=== PATIENT | female | born 2000 | race Caucasian/White ===

== ENCOUNTER 2023-08-04 13:10 | Inpatient (IN) | payer BC, SELFPAY ==
[2023-08-04] VITALS (22 sets, daily range): BP systolic 91–171; BP diastolic 45–100; PULSE 62–147; RESP 18–50; TEMP 34–38.5; O2SAT 92–99; BMI 45.0
--- NOTE | ~2023-08-04 | XR_ITS ---
EXAMINATION: XR CHEST CLINICAL INFORMATION: Intubation COMPARISON: None available. TECHNIQUE: Frontal view of the chest was obtained. FINDINGS: The lungs are hypoexpanded but clear. The heart size and pulmonary vascularity is normal. Tip of endotracheal tube is 3.0 cm above the hayley. Enteric tube tip is below the diaphragm. No gross bony abnormality seen. XR/XR chest 1V IMPRESSION: 1. Hypoexpanded lungs without acute process. 2. Support lines and catheters are in satisfactory position.
--- NOTE | ~2023-08-04 | CT_ITS ---
CT HEAD WITHOUT IV CONTRAST INDICATION: Mental status change. COMPARISON: None available. TECHNIQUE: Multidetector CT acquisitions of the head was obtained without IV contrast. This CT examination was performed using dose optimization techniques as appropriate, variously including the following: *Automated exposure control *Adjustment of mA and/or kV according to patient size (this includes techniques or standardized protocols for targeted exams where dose is matched to indication/reason for exam; i.e. extremities or head) *Use of iterative reconstruction technique FINDINGS: There is no intracranial hemorrhage, hydrocephalus, extra-axial surface collection, midline shift, or other herniation pattern. Rowe to white matter differentiation is diffusely maintained without evidence of an evolved acute territorial infarct. The basilar cisterns are preserved. No significant soft tissue abnormality. No acute osseous abnormality. The paranasal sinuses and the mastoid air cells are well aerated. CT/CT head/brain wo IV con IMPRESSION: No acute intracranial abnormality.
[2023-08-04 13:43] LABS: Basophils Percent Auto 0.2 % (0-2); Hematocrit 41.1 % (37.0-47.0); Hemoglobin 13.6 g/dl (12.0-16.0); Imm Gran Abs Auto 0.09 X10*3/uL (0.00-0.03); Imm Gran Pct Auto 0.5 % (0.0-0.4); Lymphocytes Absolute Auto 0.5 X10*3/uL (1.2-4.9); Lymphocytes Percent Auto 2.5 % (20-40); MANUAL DIFF FLAG SCAN; Mean Corpuscular HGB Conc 33.1 g/dl (31.0-35.0); Mean Corpuscular Hemoglobin 27.8 pg (27.0-33.0); Mean Corpuscular Volume 83.9 fL (80.0-98.0); Mean Platelet Volume 9.8 fL (9.4-12.3); Monocytes Absolute Auto 0.4 X10*3/uL (0.1-1.2); Monocytes Percent Auto 1.8 % (2-11); Neutrophils Absolute Auto 18.3 x10*3/uL (2.0-8.3); Platelet Count 372 X10*3/uL (160-400); Red Cell Distribution Width 13.1 % (11.0-16.0); SCAN SMEAR FLAG 1; White Blood Count 19.3 X10*3/uL (4.8-10.8)
[2023-08-04] MEDS: LORazepam 2 MG/ML VIAL 1 MG IVPUSH (13:52)
--- NOTE | 2023-08-04 13:53 | ED_ITS ---
HPI - Seizure General Chief Complaint: Seizure Stated Complaint: ? SZ,?POST ICTAL PER EMS Time Seen by Provider: 08/04/23 13:50 Source: family (MOTHER) and EMS Mode of arrival: EMS Limitations: other (POSTICTAL) History of Present Illness HPI Narrative: THIS IS A 23 YEARS OLD FEMALE BROUGHT IN FROM [place] FOR A WITNESSED SEIZURE BY THE BOYFRIEND. SHE ARRIVED POSTICTAL. MOTHER STATES ABOUT A MONTH AGO SHE HAD A SIMILAR EPISODE ABOUT THE ED NO SICK MEDICAL ATTENTION. NO REPORTED FEVER NO REPORTED VOMITING SHE WAS WELL UNTIL THIS SEIZURE. MD complaint: seizure Onset (ago): hour(s) (1) Witnessed: Yes - by Bystander Trauma: No Seizure History: No Place: Home Possible Precipitating Event: none Associated symptoms: denies other symptoms Related Data Allergies Allergy/AdvReac Type Severity Reaction Status Date / Time No Known Allergies Allergy Verified 08/04/23 13:51 Review of Systems 2 Review of Systems: Yes Unobtainable due to mental condition [facility] Past Medical History Attestation statement: The following information was validated with the patient. [facility] Narrative: DEPRESSION Social History Social History Advance Directives: No Physical Exam 2 Vital Signs: Vital Signs: Last Vital Signs Temp 101.3 F H 08/04/23 15:43 Pulse 102 H 08/04/23 15:43 Resp 34 H 08/04/23 15:43 BP 143/72 H 08/04/23 15:43 Pulse Ox 93 08/04/23 15:43 O2 Del Method Room Air 08/04/23 15:43 BMI result Body Mass Index 45.0 Const: General: well developed Nutritional Appearance: well nourished HEENT: Other: NO SIGN OF TRAUMA Head: Yes normal to inspection General nose exam: Normal external nose present Face and sinus: Yes normal facial exam Neck: Neck: Yes full ROM Chest: Chest palpation & inspection: normal inspection of the chest Resp: Effort & Inspection: normal respiratory effort Auscultation: clear to auscultation bilaterally Cardio: Jugular venous distension: no JVD Rate: regular rate Rhythm: r egular rhythm GI: Inspection: Yes normal to inspection Palpation (GI): Soft to palpation, not firm, nontender and no guarding Skin: General skin exam: no rashes or lesions noted and elasticity normal L esions: no lesions Rashes: no rashes Trauma: no lacerations or abrasions Neuro: Other: SHE APPEAR POSTICTAL SHE FOLLOW SIMPLE COMMANDS Course Reevaluation(s) Reevaluation #1: PT VERY AGITATED POST ICTAL SEDATED IN ORDER TO DO CT HEAD,SHE HAS ALSO FEVER RECTALLY WITH ELEVATED WBC . i ATTEMPED LP UNDER SEDATION BUT UNABLE TO OBTAIN GIVEN HER BODY WEIGHT ABOUT 115.3 KG WILL TERAT JUST IN CASE WITH ROCEPHIN AND ACYCLOVIR,WILL NEED IR GUIDED LP Reevaluation #2: PATIENT CONTINUED TO THRASH IN THE BED DESPITE MULTIPLE DOES OF IV BENZODIAZEPINE IV DROPERIDOL IV KETAMINE. DECISION TO INTUBATE TO PROTECT AIRWAY PATIENT WAS INTUBATED WITH RSI ETOMIDATE Ssux A 1ST ATTEMPT i AM OFF SHIFT NOW SIGNED OUT TO dR Romano i COVERED THE PT WITH ROCEPHIN AND ACYCLOVIR IN CASE [employer] INFECTION,i WAS UNABLE TO DO lp GIVEN BODY ABITUS SHE WILL NEED IR Time: 16:31 Medications Administered Discontinued Medications Generic Name Dose Route Start Last Admin Trade Name Freq PRN Reason Stop Dose Admin Acetaminophen 650 mg 08/04/23 14:42 08/04/23 15:00 Acetaminophen Supp 650 Mg Supp.Rect DC 08/04/23 14:43 650 mg ONCE ONE Administration Droperidol 0.625 mg 08/04/23 13:51 08/04/23 14:07 Droperidol 5 Mg/2 Ml Vial IVPUSH 08/04/23 13:52 0.625 mg ONCE ONE Administration Droperidol 5 mg 08/04/23 15:24 08/04/23 16:32 Droperidol 5 Mg/2 Ml Vial IVPUSH 08/04/23 15:25 5 mg ONCE ONE Administration Levetiracetam 1,500 mg in 100 mls @ 400 mls/hr 08/04/23 13:51 08/04/23 14:07 Keppra IV 08/04/23 14:05 400 mls/hr ONCE ONE Administration Sodium Chloride 1,000 mls @ 999 mls/hr 08/04/23 14:00 08/04/23 16:31 Ns IVCONT 08/04/23 15:00 999 mls/hr .Q1H1M CORINNA Administration Ceftriaxone Sodium 2 gm/ 50 mls @ 100 mls/hr 08/04/23 14:41 08/04/23 16:31 Sodium Chloride IV 08/04/23 15:10 100 mls/hr ONCE ONE Administration Lorazepam 1 mg 08/04/23 13:48 08/04/23 13:52 Lorazepam 2 Mg/Ml Vial IVPUSH 08/04/23 13:49 1 mg ONCE ONE Administration Medical Decision Making Medical Decision Making [facility] Narrative: PATIENT SEIZURE WITNESSED BY THE FAMILY WILL OBTAIN HEAD CT LABS AND REASSESS 16:00 PATIENT CONTINUED TO THRASH IN THE BED DESPITE MULTIPLE DOSES OF BENZODIAZEPINE/DROPERIDOL. THAT SHE IS DOING WAS MADE TO INTUBATE THE PATIENT PRESENT AIRWAY HE WAS INTUBATED WITH RSI AT THE 1ST ATTEMPT BY ME. 4:30 pm SIGNED OUT TO dR ROMANO OFF SHIFT NOW Differential Diagnosis Differential Diagnoses: The differential diagnosis associated with the presentation includes SEIZURE/PSEUDOSEIZURES Admission/Observation Consideration of admission/observation: Escalation of care including admission/observation considered Lab Data [facility] Lab Attestation statement: I reviewed the patient's lab results. 08/04/23 13:36 08/04/23 14:15 Labs: Lab Results 08/04/23 08/04/23 Range/Units 13:36 14:15 WBC 19.3 H (4.8-10.8) X10*3/uL RBC 4.90 (4.20-5.50) X10*6/uL Hgb 13.6 (12.0-16.0) g/dl Hct 41.1 (37.0-47.0) % MCV 83.9 (80.0-98.0) fL MCH 27.8 (27.0-33.0) pg MCHC 33.1 (31.0-35.0) g/dl RDW 13.1 (11.0-16.0) % Plt Count 372 (160-400) X10*3/uL MPV 9.8 (9.4-12.3) fL Immature Gran % (Auto) 0.5 H (0.0-0.4) % Neut % (Auto) 95.0 H (45-73) % Lymph % (Auto) 2.5 L (20-40) % [place] % (Auto) 1.8 L (2-11) % Eos % (Auto) 0.0 (0-4) % Baso % (Auto) 0.2 (0-2) % Lymph # (Auto) 0.5 L (1.2-4.9) X10*3/uL [place] # (Auto) 0.4 (0.1-1.2) X10*3/uL Eos # (Auto) 0.0 (0.0-0.4) X10*3/uL Baso # (Auto) 0.0 (0.0-0.2) X10*3/uL Abs Immat Gran (auto) 0.09 H (0.00-0.03) X10*3/uL Absolute Neuts (auto) 18.3 H (2.0-8.3) x10*3/uL Absolute Nucleated RBC 0.000 (0.0-0.012) X10*3/uL Nucleated RBC % (auto) 0.0 (0.0-0.2) /100WBC Smear Tech's Comments VERIFIED PT 13.8 H (11.1-13.3) SEC INR 1.1 (0.9-1.1) Sodium 138 (135-145) mmol/L Potassium 3.4 (3.3-5.1) mmol/L Chloride 106 (96-108) mmol/L Carbon Dioxide 19 L (22-29) mmol/L Anion Gap 16 (12-20) BUN 9 (9-16) mg/dL Creatinine 0.75 (0.5-1.4) mg/dL Estim Creat Clear Calc 140.3 Estimated GFR > 60 Random Glucose 131 H (60-115) mg/dL Calcium 9.5 (8.4-10.2) mg/dL Magnesium 1.8 (1.6-2.6) mg/dL Total Bilirubin 1.0 (0.0-1.0) mg/dL AST 17 (5-31) U/L ALT 11 (0-31) U/L Alkaline Phosphatase 148 H (39-117) U/L Total Protein 8.0 (6.5-8.0) g/dL Albumin 4.4 (3.5-5.0) g/dL Beta HCG, Quant < 2 mIU/mL Ethyl Alcohol < 10 mg/dL Independent Interpretation I performed an independent interpretation of an: CT Scan Interpretation: HEAD CT NEGATIVE Radiology Impression Discussion of test interpretation with radiology: I have reviewed the radiologist's reading. Independent Historian Clinical information obtained from an independent historian. History obtained from or confirmed by: Parent (SPOKE WITH MOTHER AT [facility]) Procedures Intubation Time out performed: Yes sedative: Etomidate Mg Given: 20 paralytic: Succinylcholine Mg Given: 100 Laryngoscope: fiber optic video scope ET Tube Size: 7.5 ET Tube Uncuffed: No Tube Placement Confirmation: visualized tube passing through cords Patient Tolerated Procedure: well and no complications Additional Comments: cxr TO FOLLOW Critical Care Time Critical Care Time Critical Care Time: Yes Total Critical Care Time: 90 Attestation: TAKING CARE OF PT SPEAKING TO THE FAMILY Discharge Plan Discharge Clinical Impression: Seizure Patient Disposition: Still a Patient
[2023-08-04 13:59] LABS: SLIDE REVIEW VERIFIED
[2023-08-04] MEDS: droPERidol 5 MG/2 ML VIAL 0.625 MG IVPUSH (14:07)
[2023-08-04] MEDS: levETIRAcetam in NaCl (iso-os) 1,500 MG/100 ML PIGGYBACK 400 MG IV (14:07)
[2023-08-04 14:27] LABS: INTERNATIONAL NORM RATIO 1.1 (0.9-1.1); Prothrombin Time 13.8 SEC (11.1-13.3)
[2023-08-04] MEDS: Ketamine HCl/NS 50 MG/5 ML SYRINGE 200 MG IVPUSH (14:30)
[2023-08-04 14:33] LABS: Anion Gap 16 (12-20)
[2023-08-04 14:52] LABS: HCG Quantitative < 2 mIU/mL
[2023-08-04 14:54] LABS: Alanine Aminotransferase 11 U/L (0-31); Albumin Level 4.4 g/dL (3.5-5.0); Alkaline Phosphatase 148 U/L (39-117); Aspartate Amino Transferase 17 U/L (5-31); Blood Urea Nitrogen 9 mg/dL (9-16); Calcium 9.5 mg/dL (8.4-10.2); Carbon Dioxide 19 mmol/L (22-29); Chloride 106 mmol/L (96-108); Creatinine Clr Calc Pharmacy 140.3; Estimated Glomerular Filt Rate > 60; Ethanol < 10 mg/dL; Glucose Random 131 mg/dL (60-115); Magnesium 1.8 mg/dL (1.6-2.6); Potassium 3.4 mmol/L (3.3-5.1); Sodium 138 mmol/L (135-145)
[2023-08-04] MEDS: Acetaminophen Supp 650 MG SUPP.RECT PR (15:00)
[2023-08-04] MEDS: Etomidate 20 MG/10 ML VIAL IVPUSH (16:24)
[2023-08-04] MEDS: 0.9 % Sodium Chloride 1,000 ML 999 ML IVCONT (16:31)
[2023-08-04] MEDS: cefTRIAXone sodium 2 GM in 0.9 % Sodium Chloride 50 ML IV (16:31)
[2023-08-04] MEDS: droPERidol 5 MG/2 ML VIAL IVPUSH (16:32)
[2023-08-04] MEDS: propofoL 1,000 MG/100 ML VIAL 20.75 MG IVCONT (16:32)
[2023-08-04] MEDS: Rocuronium Bromide 50 MG/5 ML VIAL IVPUSH (17:00)
[2023-08-04] MEDS: Midazolam HCl/PF 2 MG/2 ML VIAL IVPUSH ×2 (17:00→19:07)
--- NOTE | 2023-08-04 17:03 | PM.CCHP ---
History of Present Illness Date of Service: 08/04/23 Attending physician on admission: More Tam Chief Complaint: Seizure Patient?is a 23 Y F with hyperlipidemia, presenting following witnessed seizure; ED course c/b agitation despite multiple sedatives, and necessitating intubation; of note, history obtained from mother and boyfriend; patient reportedly had a seizure 2 months ago, though unwitnessed, and did not seek medical attention; patient was otherwise in normal state of health, developed fevers and chills yesterday; today, patient boyfriend witnessed episode of tonic-clonic movements lasting 1 minute; after, patient found to be disoriented and confused; otherwise, patient mother, boyfriend denies overt headache, photophobia, rash; per patient mother, patient prescribed lorazepam in the past, has not taken lorazepam for months; otherwise, patient mother, boyfriend deny any ingestions, or suicidal ideation; in emergency department, LP attempted in ED w/o success, treated empirically for encephalitis/meningitis Review of Systems Review of Systems: Yes unobtainable due to endotracheal tube and Unobtainable due to mental status [facility] Social History Social History Household Members: Unknown / Unable to assess Housing: Unknown / Unable to assess Unable to assess alcohol history related to: Unable to respond and Unknown Patient Tobacco Use Status: Tobacco use Unknown Smoked in Last 30 Days: No Use of substances other than those prescribed or required for medical reasons: Unable to respond Substance Use Type: Marijuana Advance Directives: No Advance Directives Information Provided: No Patient : No (negative HCG ED) Meds Allergies Allergy/AdvReac Type Severity Reaction Status Date / Time No Known Allergies Allergy Verified 08/04/23 13:51 Active Medications: Current Medications Acetaminophen (Acetaminophen 325 Mg Tablet) 650 mg PO Q6H PRN PRN Reason: Fever Chlorhexidine Gluconate (Chlorhexidine Gluc Oral Rinse 15 Ml Mouthwash) 15 ml BUCCAL Q8H CORINNA Propofol (Diprivan) 1,000 mg in 100 mls @ 0 mls/hr IVCONT .Q0M CORINNA; Protocol Last Titration: 08/04/23 16:59 Dose: 50 mcg/kg/min, 34.59 mls/hr Ceftriaxone Sodium 1 gm/ (Sodium Chloride) 50 mls @ 100 mls/hr IV Q24H CORINNA Propofol (Diprivan) 1,000 mg in 100 mls @ 0 mls/hr IVCONT .Q0M CORINNA; Protocol Propofol (Diprivan) 1,000 mg in 100 mls @ 0 mls/hr IVCONT .Q0M CORINNA; Protocol Acyclovir Sodium 775.6 mg/ (Sodium Chloride) 265.512 mls @ 265.512 mls/hr IV Q8H [facility] Pharmacy Consult (Consult Rx Vancomycin Dosing) 1 each MISCELLANE DAILY PRN PRN Reason: Consult order Home Medications Medication Instructions Recorded Confirmed Last Taken Type atorvastatin 20 mg tablet 20 mg PO DAILY 08/04/23 08/04/23 08/03/23 History escitalopram oxalate 20 mg tablet 20 mg PO DAILY 08/04/23 08/04/23 08/03/23 History Physical Exam Vital Signs: Vital Signs: Last Vital Signs Temp 101.3 F H 08/04/23 15:43 Pulse 140 H 08/04/23 16:59 Resp 22 H 08/04/23 16:59 BP 152/95 H 08/04/23 16:53 Pulse Ox 94 08/04/23 16:59 O2 Del Method Mechanical Ventil ation 08/04/23 16:53 O2 Flow Rate 50 08/04/23 16:53 FiO2 50 08/04/23 16:38 BMI result Body Mass Index 45.0 Const: Other: intubated, sedated HEENT: Other: unable to appreciable any tongue lacerations, though obstructed by endotracheal tube Head: Yes normal to inspection, Yes normocephalic and Yes atraumatic Eyes: General: appearance normal, both eyes and all related structures Neck: Neck: Yes normal visual inspection, Yes no meningeal signs, Yes supple, No positive Brudzinski's sign and No positive Kernig's sign Chest: Chest palpation & inspection: normal inspection of the chest Resp: Other: no appreciable rales, rhonchi, wheezing Effort & Inspection: normal respiratory effort Cardio: Rate: regular rate Rhythm: regular rhythm GI: Inspection: Yes normal to inspection, No Abdominal wall edema and No distended Palpation (GI): Soft to palpation, not firm, nontender, no guarding and not rigid : External Female Exam: normal external appearance Skin: General skin exam: no rashes or lesions noted Neuro: Other: intubated, sedated General: tone normal and no meningeal signs Extrem: General: Yes normal to inspection, Yes capillary refill normal and Yes no clubbing, cyanosis or edema Psych: Other: unable to assess Results Labs 08/04/23 17:06 08/04/23 14:15 Labs: Laboratory Results - last 24 hr 08/04/23 08/04/23 13:36 14:15 MCV 83.9 MCH 27.8 MCHC 33.1 RDW 13.1 Plt Count 372 MPV 9.8 Immature Gran % (Auto) 0.5 H Neut % (Auto) 95.0 H Lymph % (Auto) 2.5 L [place] % (Auto) 1.8 L Eos % (Auto) 0.0 Baso % (Auto) 0.2 Lymph # (Auto) 0.5 L [place] # (Auto) 0.4 Eos # (Auto) 0.0 Baso # (Auto) 0.0 Abs Immat Gran (auto) 0.09 H Absolute Neuts (auto) 18.3 H Absolute Nucleated RBC 0.000 Nucleated RBC % (auto) 0.0 Smear Tech's Comments VERIFIED PT 13.8 H INR 1.1 Anion Gap 16 Estim Creat Clear Calc 140.3 Estimated GFR > 60 Random Glucose 131 H Calcium 9.5 Magnesium 1.8 Total Bilirubin 1.0 AST 17 ALT 11 Alkaline Phosphatase 148 H Total Protein 8.0 Albumin 4.4 Beta HCG, Quant < 2 Ethyl Alcohol < 10 Imaging Radiologist's Impressions: Impressions Head CT 08/04/23 14:47 IMPRESSION: No acute intracranial abnormality. Assessment and Plan (1) Seizure: Status: Acute Plan Patient?is a 23 Y F with hyperlipidemia, presenting following witnessed seizure; ED course c/b agitation despite multiple sedatives, and necessitating intubation N: witnessed seizure; c/f encephalitis/meningitis; treated empirically w/ acyclovir, ceftriaxone, vancomycin; prefer propofol gtt for possible seizure; to give empiric levetiracetam CV: no acute issues R: intubated; VC-AC, wean as tolerated GI: NPO; NG tube : no acute issues H: leukocytosis, to continue to monitor; to hold chemical DVT prophylaxis for possible fluoro-guided lumbar puncture ID: c/f encephalitis/meningitis as described above; to follow-up UA, blood cultures E: hyperglycemia; insulin sliding scale
[2023-08-04 17:12] LABS: Basophils Percent Auto 0.1 % (0-2); Hematocrit 43.4 % (37.0-47.0); Imm Gran Pct Auto 0.5 % (0.0-0.4); Lymphocytes Absolute Auto 0.6 X10*3/uL (1.2-4.9); Lymphocytes Percent Auto 2.9 % (20-40); MANUAL DIFF FLAG SCAN; Mean Corpuscular HGB Conc 32.3 g/dl (31.0-35.0); Mean Corpuscular Hemoglobin 27.9 pg (27.0-33.0); Mean Corpuscular Volume 86.6 fL (80.0-98.0); Mean Platelet Volume 9.3 fL (9.4-12.3); Monocytes Absolute Auto 0.4 X10*3/uL (0.1-1.2); Neutrophils Percent Auto 94.5 % (45-73); Platelet Count 355 X10*3/uL (160-400); Red Blood Count 5.01 X10*6/uL (4.20-5.50); Red Cell Distribution Width 13.2 % (11.0-16.0); SCAN SMEAR FLAG 1
[2023-08-04 17:14] LABS: VBG Base Excess -3.9 mmol/L; VBG HCO3 19 mmol/L (22-26); VBG pCO2 28 mmHg; VBG pH 7.42 (7.32-7.43); VBG pO2 83 mmHg
[2023-08-04 17:15] LABS: Venous Blood Gas Refer to POC result
[2023-08-04] MEDS: Succinylcholine Chloride 200 MG/10 ML VIAL 100 MG IVPUSH (17:16)
[2023-08-04 17:23] LABS: Lactic Acid 1.8 mmol/L (0.5-2.0)
[2023-08-04 17:25] LABS: Amphetamine Screen Urine Not Detected (Not Detect); Barbiturates, Urine Not Detected (Not Detect); Benzodiazepines Screen Urine Not Detected (Not Detect); Cannabinoid Screen Urine POSITIVE (Not Detect); Cocaine Screen Urine Not Detected (Not Detect); Fentanyl, urine Not Detected (Not Detect); Opiate Screen Urine Not Detected (Not Detect); Phencyclidine Screen Urine Not Detected (Not Detect)
[2023-08-04] MEDS: fentaNYL citrate/PF 100 MCG/2 ML VIAL IVPUSH ×3 (17:40→19:07)
[2023-08-04 17:54] LABS: Band Neutrophils Percent 1 % (3-5); Lymphocytes Absolute Manual 0.6 X10*3/uL (1.2-4.9); Lymphocytes Percent Manual 3 % (20-40); Monocytes Absolute Manual 0.6 X10*3/uL (0.1-1.2); Monocytes Percent Manual 3 % (2-11); Neutrophils Absolute Manual 17.9 X10*3/uL (2.0-8.3); Neutrophils Percent Manual 93 % (45-73)
[2023-08-04 17:56] LABS: RBC Morphology NORMAL
[2023-08-04 17:57] LABS: Platelet Estimate NORMAL (NORMAL); Platelet Morphology Comment NORMAL
[2023-08-04] MEDS: Midazolam HCl/PF 2 MG/2 ML VIAL 4 MG IVPUSH ×2 (18:10→18:20)
[2023-08-04] MEDS: fentaNYL citrate/NS 1,000 MCG/100 ML PLAST..BAG 10 MCG IVCONT (18:20)
--- NOTE | 2023-08-04 18:30 | PC.NURSE ---
Late entry: patient arrived in ED at 1330 via EMS. Patient was altered upon EMS arrival in four point soft restraints. Pt was transferred to ED stretcher, subsequently placed in four point restraints due to extreme agitation, attempting to get up, grab at EKG leads and other necessary medical tubes. This RN placed 20g IV in RAC, constantly needing redirection, reminders to lay down. Patient continued to attempt to slip restraints. Dr. Gan saw patient at 1350, verbal order for Ativan and Keppra. Ativan administered with minimal effect, Keppra also given. Patient continued to be agitated, attempting to remove restraints, kicking, biting. Dr. Gan aware, Ketamine administered. Ketamine had some positive effect, this RN placed 16f fuller cath with immediate output of 100ml. Patient was brought to CT for head CT. Patient began waking up while in CT, pt brought back to room, was given additional Ketamine with some effect. MD attempted to perform lumbar puncture, no success. Patient began getting agitated Versed administered. Patient continued to be increasingly agitated for multiple hours. MD Gan made aware multiple times, patient was moved to room 5 with anticipation of intubation. Decision to intubate at 1615, Etomidate and Succs given at 1624. Patient repositioned, second IV started, CXR completed, patient had to be maxed out on propofol at 50mcg/kg/min, fluids started, abx started. Versed given, Fentanyl given with short term effect. Patient transferred to ICU by this RN, Rosana RN and Hallie, RT. Access: -20g RAC -20g LFA Vent: -7.5 tube, 22 at the lip -Vent settings: 18 RR, 450 VT, 50% O2 and 5 Peep Other: -NG tube -16f fuller catheter, draining semi-cloudy urine Skin assessment: -patient came to the ER with mutliple bruises along both arms, right upper back and inner thighs. Patient had superficial lac on R flank Per mother at baseline, patient is alert and oriented x4, no known seizure hx
[2023-08-04] MEDS: propofoL 1,000 MG/100 ML VIAL 34.59 MG IVCONT (18:35)
[2023-08-04] MEDS: Chlorhexidine Gluc Oral Rinse 15 ML MOUTHWASH BUCCAL (18:35)
--- NOTE | 2023-08-04 18:41 | PHA.MEDREC ---
Pharmacy Consult ? Medication Reconciliation Pharmacy has completed the medication reconciliation. Spoke to patient's mother Yola to confirm meds.
[2023-08-04] MEDS: vancomycin/NS 2,000 MG/500 ML PLAST..BAG 250 MG IV (18:51)
[2023-08-04 19:21] LABS: Anion Gap 18 (12-20); Blood Urea Nitrogen 8 mg/dL (9-16); Calcium 8.9 mg/dL (8.4-10.2); Carbon Dioxide 15 mmol/L (22-29); Chloride 110 mmol/L (96-108); Creatinine Clr Calc Pharmacy 146.2; Estimated Glomerular Filt Rate > 60; Glucose Random 106 mg/dL (60-115); Potassium 3.5 mmol/L (3.3-5.1); Sodium 139 mmol/L (135-145)
[2023-08-04 19:23] LABS: Acetaminophen LAB 4 mcg/mL (<30); Salicylate < 5.0 mg/dL (15-30)
[2023-08-04 20:47] LABS: Appearance Urine Hazy; Color Urine Yellow; Glucose Urine UA Negative (Negative); Leukocyte Esterase Urine Negative (Negative); Nitrite Urine Negative (Negative); PH 5.5 (5.0-9.0); Specific Gravity - Urine >= 1.030 (1.005-1.025); UMIC TRIGGER UA YES; Urine Blood Small (1+) (Negative); Urine Ketones 40 mg/dL (Negative); Urine Protein Trace mg/dL (Neg-Trace)
[2023-08-04 20:58] LABS: Bacteria Urine None Seen (None Seen); Hyaline Casts Urine 0-2 /LPF (0-2); Other Crystals Urine Present; RBC Urine 0-2 /HPF (0-2); Squamous Epithelial Cell Urine 0-2 /HPF (0-2); WBC Urine 0-5 /HPF (0-5)
[2023-08-04] MEDS: propofoL 1,000 MG/100 ML VIAL 27.67 MG IVCONT (21:49)
[2023-08-05] VITALS (27 sets, daily range): BP systolic 85–145; BP diastolic 46–84; PULSE 55–122; RESP 12–33; TEMP 35–36.9; O2SAT 90–99; BMI 47.4
[2023-08-05] MEDS: levETIRAcetam in NaCl (iso-os) 1,000 MG/100 ML PIGGYBACK 400 MG IV ×3 (00:10→20:38)
[2023-08-05] MEDS: Chlorhexidine Gluc Oral Rinse 15 ML MOUTHWASH BUCCAL (00:10)
[2023-08-05] MEDS: fentaNYL citrate/NS 1,000 MCG/100 ML PLAST..BAG 10 MCG IVCONT (00:45)
[2023-08-05] MEDS: propofoL 1,000 MG/100 ML VIAL 24.21 MG IVCONT ×2 (01:58→05:24)
[2023-08-05] MEDS: vancomycin HCL 1,000 MG in 0.9 % Sodium Chloride 250 ML 270 MG IV (04:27)
[2023-08-05 04:46] LABS: VBG Base Excess -0.7 mmol/L; VBG HCO3 20 mmol/L (22-26); VBG pCO2 24 mmHg; VBG pH 7.53 (7.32-7.43); VBG pO2 66 mmHg
[2023-08-05 04:51] LABS: Venous Blood Gas Refer to POC result
[2023-08-05 05:07] LABS: MANUAL DIFF FLAG NO
[2023-08-05 05:08] LABS: Basophils Percent Auto 0.4 % (0-2); Eosinophils Percent Auto 0.2 % (0-4); Hematocrit 36.2 % (37.0-47.0); Imm Gran Abs Auto 0.02 X10*3/uL (0.00-0.03); Imm Gran Pct Auto 0.2 % (0.0-0.4); Lymphocytes Absolute Auto 2.4 X10*3/uL (1.2-4.9); Lymphocytes Percent Auto 24.9 % (20-40); Mean Corpuscular HGB Conc 33.1 g/dl (31.0-35.0); Mean Corpuscular Hemoglobin 27.5 pg (27.0-33.0); Mean Corpuscular Volume 82.8 fL (80.0-98.0); Mean Platelet Volume 9.6 fL (9.4-12.3); Monocytes Absolute Auto 0.7 X10*3/uL (0.1-1.2); Monocytes Percent Auto 7.1 % (2-11); Neutrophils Absolute Auto 6.5 x10*3/uL (2.0-8.3); Neutrophils Percent Auto 67.2 % (45-73); Platelet Count 304 X10*3/uL (160-400); Red Blood Count 4.37 X10*6/uL (4.20-5.50); White Blood Count 9.7 X10*3/uL (4.8-10.8)
[2023-08-05 05:25] LABS: Anion Gap 15 (12-20); Blood Urea Nitrogen 7 mg/dL (9-16); Calcium 8.8 mg/dL (8.4-10.2); Carbon Dioxide 18 mmol/L (22-29); Chloride 111 mmol/L (96-108); Creatinine Clr Calc Pharmacy 157.1; Estimated Glomerular Filt Rate > 60; Glucose Random 82 mg/dL (60-115); Potassium 2.6 mmol/L (3.3-5.1); Sodium 141 mmol/L (135-145)
[2023-08-05] MEDS: Potassium Chloride Packet 20 MEQ PACKET 40 MEQ PO (06:33)
[2023-08-05] MEDS: Potassium Chloride/H20 10 MEQ/100 ML PIGGYBACK 100 MEQ IV ×4 (08:57→14:30)
[2023-08-05] MEDS: Midazolam HCl/PF 2 MG/2 ML VIAL 1 MG IVPUSH (09:15)
[2023-08-05 11:02] LABS: Vancomycin Random 17.8 mcg/mL (15-20)
--- NOTE | 2023-08-05 11:32 | HE.PHANOTE ---
RE: VANCO Based on trough level comes back as 17.8 when predicted to be 13.9 and there's concern of dose dumping due to patient's weight, dose was decreased to 1250mg q12h, starting at 2100. Next random level was scheduled for 08/06/23@0700.
--- NOTE | 2023-08-05 11:34 | PM.CCPN ---
Subjective Subjective Date of Service: 08/05/23 Interval History: 23-year-old lady admitted on 08/04/2023 with weakness seizure and agitation requiring multiple sedatives, intubated in the emergency department for airway protection. Initial head imaging essentially normal. Patient apparently covered for encephalitis. Initial lumbar puncture attempt unsuccessful. Today patient doing well on sedation vacation and extubated uneventfully this a.m.. Following commands, appropriate. Critical Care Time (minutes): 45 Physical Exam Vital Signs: Vital Signs: Last Vital Signs Temp 98.5 F 08/05/23 08:00 Pulse 74 08/05/23 11:00 Resp 33 H 08/05/23 11:00 BP 114/64 08/05/23 11:00 Pulse Ox 98 08/05/23 11:00 O2 Del Method Nasal Cannula 08/05/23 11:00 O2 Flow Rate 50 08/04/23 17:39 FiO2 30 08/05/23 09:00 BMI result Body Mass Index 47.4 Const: General: no acute distress, alert and awake Nutritional Appearance: obese Eyes: Sclerae: sclerae normal EOM: EOMs intact bilaterally Neck: Neck: Yes no lymphadenopathy, Yes trachea midline and Yes supple Resp: Effort & Inspection: normal respiratory effort and no respiratory distress Auscultation: clear to auscultation bilaterally Cardio: Rate: regular rate Rhythm: regular rhythm Heart sounds: no gallops, no murmurs and no rubs GI: Palpation (GI): Soft to palpation and Other GI palpation findings present ( Nontender) Auscultation: normal bowel sounds Extrem: General: Yes no pedal edema, No clubbing and No cyanosis Objective Data Labs 08/05/23 04:38 08/05/23 04:38 Labs: Laboratory Results - last 24 hr 08/04/23 08/04/23 08/04/23 13:36 14:15 17:06 WBC 19.3 H 19.0 H RBC 4.90 5.01 Hgb 13.6 14.0 Hct 41.1 43.4 MCV 83.9 86.6 MCH 27.8 27.9 MCHC 33.1 32.3 RDW 13.1 13.2 Plt Count 372 355 MPV 9.8 9.3 L Immature Gran % (Auto) 0.5 H 0.5 H Neut % (Auto) 95.0 H 94.5 H Lymph % (Auto) 2.5 L 2.9 L [place] % (Auto) 1.8 L 2.0 Eos % (Auto) 0.0 0.0 Baso % (Auto) 0.2 0.1 Lymph # (Auto) 0.5 L 0.6 L [place] # (Auto) 0.4 0.4 Eos # (Auto) 0.0 0.0 Baso # (Auto) 0.0 0.0 Abs Immat Gran (auto) 0.09 H 0.10 H Absolute Neuts (auto) 18.3 H 18.0 H Absolute Nucleated RBC 0.000 0.000 Nucleated RBC % (auto) 0.0 0.0 Neutrophils % (Manual) 93 H Band Neutrophils % 1 L Lymphocytes % (Manual) 3 L Monocytes % (Manual) 3 Abs Neuts (Manual) 17.9 H Lymphocytes # (Manual) 0.6 L Monocytes # (Manual) 0.6 Platelet Estimate NORMAL Plt Morphology Comment NORMAL RBC Morphology NORMAL Smear Tech's Comments VERIFIED PT 13.8 H INR 1.1 VBG pH VBG pCO2 VBG pO2 VBG HCO3 VBG O2 Saturation VBG Base Excess Sodium 138 Potassium 3.4 Chloride 106 Carbon Dioxide 19 L Anion Gap 16 BUN 9 Creatinine 0.75 Estim Creat Clear Calc 140.3 Estimated GFR > 60 Random Glucose 131 H Lactic Acid 1.8 Calcium 9.5 Magnesium 1.8 Total Bilirubin 1.0 AST 17 ALT 11 Alkaline Phosphatase 148 H Total Protein 8.0 Albumin 4.4 Beta HCG, Quant < 2 Urine Color Urine Appearance Urine pH Ur Specific [employer] Urine Protein Urine Glucose (UA) Urine Ketones Urine Blood Urine Nitrite Ur Leukocyte Esterase Urine RBC Urine WBC Ur Squamous Epith Cells Other Crystals Urine Bacteria Hyaline Casts Random Vancomycin Salicylates Urine Opiates Screen Not Detected Urine Fentanyl Screen Not Detected Acetaminophen Ur Barbiturates Screen Not Detected Ur Phencyclidine Scrn Not Detected Ur Amphetamines Screen Not Detected U Benzodiazepines Scrn Not Detected Urine Cocaine Screen Not Detected U Marijuana (THC) Screen POSITIVE H Ethyl Alcohol < 10 08/04/23 08/04/23 08/04/23 17:10 18:57 Unknown WBC RBC Hgb Hct MCV MCH MCHC RDW Plt Count MPV Immature Gran % (Auto) Neut % (Auto) Lymph % (Auto) [place] % (Auto) Eos % (Auto) Baso % (Auto) Lymph # (Auto) [place] # (Auto) Eos # (Auto) Baso # (Auto) Abs Immat Gran (auto) Absolute Neuts (auto) Absolute Nucleated RBC Nucleated RBC % (auto) Neutrophils % (Manual) Band Neutrophils % Lymphocytes % (Manual) Monocytes % (Manual) Abs Neuts (Manual) Lymphocytes # (Manual) Monocytes # (Manual) Platelet Estimate Plt Morphology Comment RBC Morphology Smear Tech's Comments PT INR VBG pH 7.42 VBG pCO2 28 VBG pO2 83 VBG HCO3 19 L VBG O2 Saturation 98.0 VBG Base Excess -3.9 Sodium 139 Potassium 3.5 Chloride 110 H Carbon Dioxide 15 L Anion Gap 18 BUN 8 L Creatinine 0.72 Estim Creat Clear Calc 146.2 Estimated GFR > 60 Random Glucose 106 Lactic Acid Calcium 8.9 D Magnesium Total Bilirubin AST ALT Alkaline Phosphatase Total Protein Albumin Beta HCG, Quant Urine Color Yellow Urine Appearance Hazy Urine pH 5.5 Ur Specific [employer] >= 1.030 H Urine Protein Trace Urine Glucose (UA) Negative Urine Ketones 40 Urine Blood Small (1+) H Urine Nitrite Negative Ur Leukocyte Esterase Negative Urine RBC 0-2 Urine WBC 0-5 Ur Squamous Epith Cells 0-2 Other Crystals Present Urine Bacteria None Seen Hyaline Casts 0-2 Random Vancomycin Salicylates < 5.0 L Urine Opiates Screen Urine Fentanyl Screen Acetaminophen 4 Ur Barbiturates Screen Ur Phencyclidine Scrn Ur Amphetamines Screen U Benzodiazepines Scrn Urine Cocaine Screen U Marijuana (THC) Screen Ethyl Alcohol 08/05/23 08/05/23 08/05/23 04:38 04:40 09:56 WBC 9.7 RBC 4.37 Hgb 12.0 Hct 36.2 L MCV 82.8 MCH 27.5 MCHC 33.1 RDW 13.0 Plt Count 304 MPV 9.6 Immature Gran % (Auto) 0.2 Neut % (Auto) 67.2 Lymph % (Auto) 24.9 [place] % (Auto) 7.1 Eos % (Auto) 0.2 Baso % (Auto) 0.4 Lymph # (Auto) 2.4 [place] # (Auto) 0.7 Eos # (Auto) 0.0 Baso # (Auto) 0.0 Abs Immat Gran (auto) 0.02 Absolute Neuts (auto) 6.5 Absolute Nucleated RBC 0.000 Nucleated RBC % (auto) 0.0 Neutrophils % (Manual) Band Neutrophils % Lymphocytes % (Manual) Monocytes % (Manual) Abs Neuts (Manual) Lymphocytes # (Manual) Monocytes # (Manual) Platelet Estimate Plt Morphology Comment RBC Morphology Smear Tech's Comments PT INR VBG pH 7.53 H VBG pCO2 24 VBG pO2 66 VBG HCO3 20 L VBG O2 Saturation 96.0 VBG Base Excess -0.7 Sodium 141 Potassium 2.6 L D Chloride 111 H Carbon Dioxide 18 L Anion Gap 15 BUN 7 L Creatinine 0.67 Estim Creat Clear Calc 157.1 Estimated GFR > 60 Random Glucose 82 Lactic Acid Calcium 8.8 Magnesium Total Bilirubin AST ALT Alkaline Phosphatase Total Protein Albumin Beta HCG, Quant Urine Color Urine Appearance Urine pH Ur Specific [employer] Urine Protein Urine Glucose (UA) Urine Ketones Urine Blood Urine Nitrite Ur Leukocyte Esterase Urine RBC Urine WBC Ur Squamous Epith Cells Other Crystals Urine Bacteria Hyaline Casts Random Vancomycin 17.8 Salicylates Urine Opiates Screen Urine Fentanyl Screen Acetaminophen Ur Barbiturates Screen Ur Phencyclidine Scrn Ur Amphetamines Screen U Benzodiazepines Scrn Urine Cocaine Screen U Marijuana (THC) Screen Ethyl Alcohol Progress Note: A&P Assessment and plan (1) Acute metabolic encephalopathy: Status: Acute (2) Seizure: Status: Acute Plan Assessment: 23-year-old admitted with seizure versus pseudo-seizure with agitation initially requiring intubation, now extubated uneventfully Plan: Neuro: Seizure versus pseudo-seizure. No recurrence. Alert and oriented. Continues on Keppra. No meningeal signs. Will monitor off antibiotics. Cardiac: No acute issues. Pulmonary: Intubated for airway protection and emergency room, extubated uneventfully this a.m.. Renal: No acute issues. Endo: No acute issues. GI: No acute issues. ID: No acute issues Heme/Onc: No acute issues. Psych: No acute issues. Miscellaneous: No acute issues. Prophylaxis: Heparin Diet: Pending swallow evaluation Critical care time spent: 45 minutes Quality Stroke Does the patient have a stroke diagnosis?: No VTE Prior VTE?: No VTE Risk Level:: Medical - moderate - high VTE Device Contraindication: N/A - Device Ordered VTE Drug Contraindication: Treatment Not Tolerated
--- NOTE | 2023-08-05 12:26 | PC.NURSE ---
[place] removed 11:00. Pt voided small amount of clear yellow urine on the commode. DTV again 17:00.
--- NOTE | 2023-08-05 13:39 | MHC.CM.PN ---
This mortgage loan underwriter placed call to patient's mother as next of kin for CM assessment. Patient lives with mother in the home. Independent with all ADLS. Patient has not been working related to experiencing depression. DCP: home no services and family to transport.
[2023-08-05] MEDS: Heparin Sodium,Porcine 5,000 UNIT/ML VIAL 5000 UNIT SUBCUT ×2 (14:12→20:12)
[2023-08-05] MEDS: busPIRone HCl 5 MG TABLET 15 MG PO (20:08)
[2023-08-05] MEDS: Escitalopram Oxalate 20 MG TABLET PO (20:08)
[2023-08-05 20:41] LABS: Anion Gap 14 (12-20); Blood Urea Nitrogen 5 mg/dL (9-16); Calcium 8.7 mg/dL (8.4-10.2); Carbon Dioxide 19 mmol/L (22-29); Chloride 113 mmol/L (96-108); Estimated Glomerular Filt Rate > 60; Glucose Random 83 mg/dL (60-115); Potassium 4.1 mmol/L (3.3-5.1); Sodium 142 mmol/L (135-145)
[2023-08-06] VITALS (13 sets, daily range): BP systolic 96–137; BP diastolic 52–85; PULSE 58–87; RESP 16–30; TEMP 36.1–37; O2SAT 91–98; BMI 47.0; BMI 46.8
[2023-08-06] MEDS: Heparin Sodium,Porcine 5,000 UNIT/ML VIAL 5000 UNIT SUBCUT ×3 (04:51→20:56)
[2023-08-06 05:04] LABS: VBG Base Excess -0.2 mmol/L; VBG HCO3 23 mmol/L (22-26); VBG pCO2 36 mmHg; VBG pH 7.42 (7.32-7.43); VBG pO2 42 mmHg
[2023-08-06 05:05] LABS: MANUAL DIFF FLAG NO
[2023-08-06 05:07] LABS: Basophils Percent Auto 0.4 % (0-2); Eosinophils Percent Auto 0.6 % (0-4); Hematocrit 35.9 % (37.0-47.0); Hemoglobin 11.5 g/dl (12.0-16.0); Imm Gran Abs Auto 0.02 X10*3/uL (0.00-0.03); Imm Gran Pct Auto 0.3 % (0.0-0.4); Lymphocytes Absolute Auto 2.1 X10*3/uL (1.2-4.9); Lymphocytes Percent Auto 29.7 % (20-40); Mean Corpuscular Hemoglobin 27.4 pg (27.0-33.0); Mean Corpuscular Volume 85.5 fL (80.0-98.0); Mean Platelet Volume 9.4 fL (9.4-12.3); Monocytes Absolute Auto 0.5 X10*3/uL (0.1-1.2); Monocytes Percent Auto 6.8 % (2-11); Neutrophils Absolute Auto 4.3 x10*3/uL (2.0-8.3); Neutrophils Percent Auto 62.2 % (45-73); Platelet Count 273 X10*3/uL (160-400); Red Cell Distribution Width 13.2 % (11.0-16.0); White Blood Count 6.9 X10*3/uL (4.8-10.8)
[2023-08-06 05:25] LABS: Alanine Aminotransferase 11 U/L (0-31); Albumin Level 3.6 g/dL (3.5-5.0); Alkaline Phosphatase 116 U/L (39-117); Anion Gap 15 (12-20); Aspartate Amino Transferase 19 U/L (5-31); Bilirubin Total 1.1 mg/dL (0.0-1.0); Blood Urea Nitrogen 4 mg/dL (9-16); Calcium 8.8 mg/dL (8.4-10.2); Carbon Dioxide 22 mmol/L (22-29); Chloride 108 mmol/L (96-108); Estimated Glomerular Filt Rate > 60; Glucose Random 77 mg/dL (60-115); Magnesium 1.9 mg/dL (1.6-2.6); Phosphorus 2.7 mg/dL (2.7-4.5); Potassium 3.5 mmol/L (3.3-5.1); Sodium 141 mmol/L (135-145); Total Protein 6.6 g/dL (6.5-8.0)
[2023-08-06 05:45] LABS: Venous Blood Gas Refer to POC result
[2023-08-06] MEDS: levETIRAcetam 1,000 MG TABLET 1000 MG PO ×2 (08:47→20:55)
--- NOTE | 2023-08-06 10:04 | P.PNCC_ITS ---
Subjective Subjective Date of Service: 08/06/23 Interval History: 23-year-old lady admitted on 08/04/2023 with weakness seizure and agitation requiring multiple sedatives, intubated in the emergency department for airway protection. Initial head imaging essentially normal. Patient apparently covered for encephalitis. Initial lumbar puncture attempt unsuccessful. No seizure recurrence. Extubated uneventfully on 08/05/2023. No events overnight. Critical Care Time (minutes): 0 Physical Exam 2 Vital Signs: Vital Signs: Last Vital Signs Temp 97.8 F 08/06/23 09:00 Pulse 87 08/06/23 09:00 Resp 16 08/06/23 09:00 BP 98/77 08/06/23 09:00 Pulse Ox 97 08/06/23 09:00 O2 Del Method Room Air 08/06/23 09:00 O2 Flow Rate 2 08/06/23 00:00 FiO2 30 08/05/23 09:00 BMI result Body Mass Index 46.8 Const: General: no acute distress, alert and awake Eyes: Sclerae: sclerae normal EOM: EOMs intact bilaterally Neck: Neck: Yes no lymphadenopathy, Yes trachea midline and Yes supple Resp: Effort & Inspection: normal respiratory effort and no respiratory distress Auscultation: clear to auscultation bilaterally Cardio: Rate: regular rate Rhythm: regular rhythm Heart sounds: no gallops, no murmurs and no rubs GI: Palpation (GI): Soft to palpation and Other GI palpation findings present ( Nontender) Auscultation: normal bowel sounds Extrem: General: Yes no pedal edema, No clubbing and No cyanosis Objective Data Labs 08/06/23 04:51 08/06/23 04:51 Labs: Laboratory Results - last 24 hr 08/05/23 08/05/23 08/06/23 09:56 20:02 04:51 WBC 6.9 RBC 4.20 Hgb 11.5 L Hct 35.9 L MCV 85.5 MCH 27.4 MCHC 32.0 RDW 13.2 Plt Count 273 MPV 9.4 Immature Gran % (Auto) 0.3 Neut % (Auto) 62.2 Lymph % (Auto) 29.7 [place] % (Auto) 6.8 Eos % (Auto) 0.6 Baso % (Auto) 0.4 Lymph # (Auto) 2.1 [place] # (Auto) 0.5 Eos # (Auto) 0.0 Baso # (Auto) 0.0 Abs Immat Gran (auto) 0.02 Absolute Neuts (auto) 4.3 Absolute Nucleated RBC 0.000 Nucleated RBC % (auto) 0.0 VBG pH VBG pCO2 VBG pO2 VBG HCO3 VBG O2 Saturation VBG Base Excess Sodium 142 141 Potassium 4.1 D 3.5 Chloride 113 H 108 Carbon Dioxide 19 L 22 Anion Gap 14 15 BUN 5 L 4 L Creatinine 0.60 0.61 Estim Creat Clear Calc 181.0 178.0 Estimated GFR > 60 > 60 Random Glucose 83 77 Calcium 8.7 8.8 Phosphorus 2.7 Magnesium 1.9 Total Bilirubin 1.1 H AST 19 ALT 11 Alkaline Phosphatase 116 Total Protein 6.6 Albumin 3.6 Random Vancomycin 17.8 08/06/23 04:58 WBC RBC Hgb Hct MCV MCH MCHC RDW Plt Count MPV Immature Gran % (Auto) Neut % (Auto) Lymph % (Auto) [place] % (Auto) Eos % (Auto) Baso % (Auto) Lymph # (Auto) [place] # (Auto) Eos # (Auto) Baso # (Auto) Abs Immat Gran (auto) Absolute Neuts (auto) Absolute Nucleated RBC Nucleated RBC % (auto) VBG pH 7.42 VBG pCO2 36 VBG pO2 42 VBG HCO3 23 VBG O2 Saturation 70.0 VBG Base Excess -0.2 Sodium Potassium Chloride Carbon Dioxide Anion Gap BUN Creatinine Estim Creat Clear Calc Estimated GFR Random Glucose Calcium Phosphorus Magnesium Total Bilirubin AST ALT Alkaline Phosphatase Total Protein Albumin Random Vancomycin Microbiology Microbiology Results: Microbiology 08/04/23 18:57 Blood - Venous Blood Culture - Preliminary No growth after 24 hours. 08/04/23 17:06 Blood - Venous Blood Culture - Preliminary No growth after 24 hours. Progress Note: A&P Assessment and plan (1) Seizure: Status: Acute (2) Acute metabolic encephalopathy: Status: Acute Plan Assessment: 23-year-old admitted with seizure versus pseudo-seizure with agitation initially requiring intubation, now extubated uneventfully Plan: Neuro: Seizure versus pseudo-seizure. No recurrence. Alert and oriented. Continues on Keppra. No meningeal signs. Will monitor off antibiotics. Cardiac: No acute issues. Pulmonary: Intubated for airway protection in the emergency room, extubated uneventfully on 08/05/2023. Renal: No acute issues. Endo: No acute issues. GI: No acute issues. ID: No acute issues Heme/Onc: No acute issues. Psych: No acute issues. Miscellaneous: No acute issues. Prophylaxis: Heparin Diet: Regular Quality Stroke Does the patient have a stroke diagnosis?: No VTE Prior VTE?: No VTE Risk Level:: Medical - moderate - high VTE Device Contraindication: N/A - Device Ordered VTE Drug Contraindication: Treatment Not Tolerated
--- NOTE | 2023-08-06 13:18 | PC.NURSE ---
Pt is calm cooperative, in no distress, airway patent, breathing easy non labored, skin pink warm and dry. mother at bedside. pt has scattered bruising to arms and abd. ambulates with steady gait.
--- NOTE | 2023-08-06 15:20 | PM.EVENT ---
Event Note Date of Service: 08/06/23 Event Note: Discussed case with ICU attending. Tx for seizure, new diagnosis. Started on Keppra. Neuro consult pending. Time Spent With Patient Time: Total time managing care of this patient today ____ minutes.
[2023-08-06] MEDS: busPIRone HCl 5 MG TABLET 15 MG PO (20:55)
[2023-08-06] MEDS: Escitalopram Oxalate 20 MG TABLET PO (20:55)
[2023-08-07 03:07] VITALS: BP 110/55; PULSE 72; RESP 18; TEMP 36.1; O2SAT 94
[2023-08-07] MEDS: Heparin Sodium,Porcine 5,000 UNIT/ML VIAL 5000 UNIT SUBCUT (04:18)
[2023-08-07 06:47] VITALS: BP 131/90; PULSE 78; RESP 16; TEMP 36.1; O2SAT 96
[2023-08-07 07:32] LABS: MANUAL DIFF FLAG NO
[2023-08-07 07:45] LABS: Basophils Percent Auto 0.7 % (0-2); Eosinophils Absolute Auto 0.1 X10*3/uL (0.0-0.4); Eosinophils Percent Auto 1.1 % (0-4); Hematocrit 39.8 % (37.0-47.0); Hemoglobin 12.7 g/dl (12.0-16.0); Imm Gran Abs Auto 0.01 X10*3/uL (0.00-0.03); Imm Gran Pct Auto 0.2 % (0.0-0.4); Lymphocytes Absolute Auto 2.1 X10*3/uL (1.2-4.9); Lymphocytes Percent Auto 36.2 % (20-40); Mean Corpuscular HGB Conc 31.9 g/dl (31.0-35.0); Mean Corpuscular Hemoglobin 27.3 pg (27.0-33.0); Mean Corpuscular Volume 85.4 fL (80.0-98.0); Monocytes Absolute Auto 0.4 X10*3/uL (0.1-1.2); Monocytes Percent Auto 6.7 % (2-11); Neutrophils Absolute Auto 3.1 x10*3/uL (2.0-8.3); Neutrophils Percent Auto 55.1 % (45-73); Platelet Count 306 X10*3/uL (160-400); Red Blood Count 4.66 X10*6/uL (4.20-5.50); Red Cell Distribution Width 13.2 % (11.0-16.0); White Blood Count 5.7 X10*3/uL (4.8-10.8)
[2023-08-07 07:58] LABS: Anion Gap 16 (12-20); Blood Urea Nitrogen 4 mg/dL (9-16); Calcium 9.4 mg/dL (8.4-10.2); Carbon Dioxide 24 mmol/L (22-29); Chloride 107 mmol/L (96-108); Creatinine Clr Calc Pharmacy 176.7; Estimated Glomerular Filt Rate > 60; Glucose Random 79 mg/dL (60-115); Phosphorus 3.3 mg/dL (2.7-4.5); Potassium 3.5 mmol/L (3.3-5.1); Sodium 143 mmol/L (135-145)
[2023-08-07 08:00] VITALS: BMI 46.8
[2023-08-07] MEDS: levETIRAcetam 1,000 MG TABLET 1000 MG PO (09:29)
--- NOTE | 2023-08-07 11:01 | P.CNNE_ITS ---
History of Present Illness Data of Consult Service Date: 08/07/23 Primary Care Provider: Roberto Hernandez MD [facility] Reason for consult: Seizure disorder 23 years old woman using marijuana since she was a teenager was brought to hospital after a generalized seizure. She was noted to be confused and then was noted to pass out and have generalized convulsion with tongue bite. She had no recollection of what had happened. According to her mother she might had similar episode couple of months ago when she was noted to be confused in similar manner though seizure was not with witnessed. She denied any other drug abuse or alcohol use. Review of Systems 2 Review of Systems: No recent cold or flu-like illness or exposure to new medicine [facility] Social History Social History Household Members: Significant Other and Family Household Members Other:: mother / boyfriend Housing: House Do you presently have visiting nurse or other home services: No Unable to assess alcohol history related to: Unable to respond and Unknown Patient Tobacco Use Status: Tobacco use Unknown Substance Use Type: Marijuana service: No Meds Allergies Allergy/AdvReac Type Severity Reaction Status Date / Time No Known Allergies Allergy Verified 08/04/23 13:51 Active Medications: Current Medications Acetaminophen (Acetaminophen 325 Mg Tablet) 650 mg PO Q6H PRN PRN Reason: Fever Buspirone HCl (Buspirone Hcl 5 Mg Tablet) 15 mg PO BEDTIME [facility] Last Admin: 08/06/23 20:55 Dose: 15 mg Escitalopram Oxalate (Escitalopram Oxalate 20 Mg Tablet) 20 mg PO BEDTIME [facility] Last Admin: 08/06/23 20:55 Dose: 20 mg Heparin Sodium (Porcine) (Heparin Sodium,Porcine 5,000 Unit/Ml Vial) 5,000 unit SUBCUT Q8H [facility] Last Admin: 08/07/23 04:18 Dose: 5,000 unit Levetiracetam (Levetiracetam 1,000 Mg Tablet) 1,000 mg PO BID [facility] Last Admin: 08/07/23 09:29 Dose: 1,000 mg Home Medications Medication Instructions Recorded Confirmed Last Taken Type escitalopram oxalate 20 mg tablet 20 mg PO BEDTIME 08/04/23 08/05/23 08/03/23 History buspirone 15 mg tablet 15 mg PO BEDTIME 08/05/23 08/05/23 Unknown History Physical Exam 2 Vital Signs: Vital Signs: Last Vital Signs Temp 97 F 08/07/23 06:47 Pulse 78 08/07/23 06:47 Resp 16 08/07/23 06:47 BP 131/90 H 08/07/23 06:47 Pulse Ox 96 08/07/23 06:47 O2 Del Method Room Air 08/07/23 06:47 O2 Flow Rate 2 08/06/23 00:00 FiO2 30 08/05/23 09:00 BMI result Body Mass Index 46.8 Neuro: Other: She is alert and awake with normal spontaneity of speech fluency comprehension and affect. Face is symmetrical. Visual arreguin are full. There is no pronator drift. [id number] testing is normal. Deep tendon reflexes are absent with flexor plantars. Speech is normal. Results Labs 08/07/23 06:21 08/07/23 06:21 Labs: Short CBC 08/07/23 Range/Units 06:21 WBC 5.7 (4.8-10.8) X10*3/uL Hgb 12.7 (12.0-16.0) g/dl Hct 39.8 (37.0-47.0) % Plt Count 306 (160-400) X10*3/uL BMP 08/07/23 06:21 Sodium 143 Potassium 3.5 Chloride 107 Carbon Dioxide 24 BUN 4 L Creatinine 0.61 Calcium 9.4 D Liver Function 08/07/23 Range/Units 06:21 Albumin 4.0 (3.5-5.0) g/dL Noncontrast head CT is unremarkable. Microbiology Microbiology Results: Microbiology 08/04/23 18:57 Blood - Venous Blood Culture - Preliminary No growth after 48 hours. 08/04/23 17:06 Blood - Venous Blood Culture - Preliminary No growth after 48 hours. Assessment and Plan (1) Seizure: Status: Acute 23 years old woman with marijuana use on regular basis since she was a teenager likely had a generalized tonic clonic seizure. Examine imaging did not reveal any significant abnormality. At this time she is advised to stop using all drug of abuse and taking medicine at least temporarily for 1st seizure prevention. Levetiracetam 500 mg twice a day is recommended. She may or may not need long- term antiepileptic treatment but that can be affected out as an outpatient. She should not drive and not be involved in activity that could put her life in danger such as swimming alone. Procedures Date of Service Date of Service: 08/07/23
--- NOTE | 2023-08-07 11:11 | MHC.CM.PN ---
pt dcd home no servies neeed
--- NOTE | 2023-08-07 12:27 | P.DS_ITS ---
DS: Providers Provider Date of Service: 08/07/23 Date of admission: 08/04/23 16:53 Primary care physician: Roberto Hernandez MD Consults: 08/06/23 15:19 Consult to Neurology Routine Consulting Provider: [facility] Reason for consultation: ? seizure DS: Diagnosis Discharge Diagnosis (1) Seizure: Status: Acute DS: Summary Hospital Course Hospital Course: history and physical as per admitting provider. Patient?is a 23 Y F with hyperlipidemia, presenting following witnessed seizure; ED course c/b agitation despite multiple sedatives, and necessitating intubation; of note, history obtained from mother and boyfriend; patient reportedly had a seizure 2 months ago, though unwitnessed, and did not seek medical attention; patient was otherwise in normal state of health, developed fevers and chills yesterday; today, patient boyfriend witnessed episode of tonic-clonic movements lasting 1 minute; after, patient found to be disoriented and confused; otherwise, patient mother, boyfriend denies overt headache, photophobia, rash; per patient mother, patient prescribed lorazepam in the past, has not taken lorazepam for months; otherwise, patient mother, boyfriend deny any ingestions, or suicidal ideation; in emergency department, LP attempted in ED w/o success, treated empirically for encephalitis/meningitis. 23-year-old woman treated for acute seizure in severe agitation. Patient initially was treated in the ICU because of severe agitation necessitating intubation. Today history of 2 seizures in the last several months that were unwitnessed but this hospitalization her significant other witnessed a tonic- clonic type seizure. She was quite disoriented and confused. Had multiple sedating medications in the ER the patient subsequently necessitated intubation due to the severe agitation. She was initially treated empirically for encephalitis /meningitis, but no further indication for this at this time as patient is completely alert and oriented, blood cultures negative, no fever or leukocytosis noted. Initial head CT was negative and no infectious source identified. Patient was seen evaluated by Neurology with recommendation to stop using all drugs as patient does use marijuana, continue Keppra 500 mg twice daily. She can follow up with Neurology as an outpatient. She should not drive for at least 6 months seizure-free and she should not place herself in situations where she would be alone suggest swimming where she could have a seizure. Patient and her mother were present during this conversation and both in agreement. Patient and her mother are also considering specialty [facility] for further workup of new onset seizures. Time Attestation Discharge coordination time: Greater than 30 minutes Quality: Safe Use of Opioids Does Pt have an Active Cancer Diagnosis on the Problem List?: No Quality: Stroke Does the patient have a stroke diagnosis?: No Physical Exam Vital Signs: Vital Signs: Last Vital Signs Temp 97 F 08/07/23 06:47 Pulse 78 08/07/23 06:47 Resp 16 08/07/23 06:47 BP 131/90 H 08/07/23 06:47 Pulse Ox 96 08/07/23 06:47 O2 Del Method Room Air 08/07/23 06:47 O2 Flow Rate 2 08/06/23 00:00 FiO2 30 08/05/23 09:00 BMI result Body Mass Index 46.8 Appearing in no acute distress head is normocephalic atraumatic eyes pupils are PERRLA sclera is anicteric mouth throat mucous membranes are intact and moist neck is supple no lymphadenopathy, no JVD noted lung sounds are clear to auscultation heart regular rate rhythm, clear S1, S2 positive bowel sounds, abdomen is soft, nontender neuro patient is alert x3, no focal deficits DS: Data Data Completed and Pending Labs on day of discharge: Laboratory Results - last 24 hr 08/07/23 06:21 WBC 5.7 RBC 4.66 Hgb 12.7 Hct 39.8 MCV 85.4 MCH 27.3 MCHC 31.9 RDW 13.2 Plt Count 306 MPV 10.0 Immature Gran % (Auto) 0.2 Neut % (Auto) 55.1 Lymph % (Auto) 36.2 [place] % (Auto) 6.7 Eos % (Auto) 1.1 Baso % (Auto) 0.7 Lymph # (Auto) 2.1 [place] # (Auto) 0.4 Eos # (Auto) 0.1 Baso # (Auto) 0.0 Abs Immat Gran (auto) 0.01 Absolute Neuts (auto) 3.1 Absolute Nucleated RBC 0.000 Nucleated RBC % (auto) 0.0 Sodium 143 Potassium 3.5 Chloride 107 Carbon Dioxide 24 Anion Gap 16 BUN 4 L Creatinine 0.61 Estim Creat Clear Calc 176.7 Estimated GFR > 60 Random Glucose 79 Calcium 9.4 D Phosphorus 3.3 Magnesium 2.0 Albumin 4.0 Preliminary micro results at discharge 08/04/23 18:57 Blood Culture - Preliminary Blood - Venous No growth after 48 hours. 08/04/23 17:06 Blood Culture - Preliminary Blood - Venous No growth after 48 hours. Discharge Plan Discharge Anticipated Discharge Date/Time: 08/07/23 12:22 Patient Disposition: Home, Self-Care Discharge Diagnosis: Seizure Referrals: Roberto Hernandez MD [Primary Care Provider] - 1 Week Discharge Medications: New levetiracetam [Keppra] 500 mg tablet 500 mg PO BID Qty: 60 0RF Continued escitalopram oxalate 20 mg tablet 20 mg PO BEDTIME buspirone 15 mg tablet 15 mg PO BEDTIME Discharge Orders: Discharge Order (Routine); Ordered 08/07/23 Ordered By: Jenifer Mart Diet: Advance to usual diet Activity on Discharge: As tolerated Stand Alone Forms: Patient Portal Discharge page Care Plan Goals: You must be 6 months seizure-free to drive. Do not involve yourself in activities put your life at risk such as swimming alone without other supervision Health Concerns: seizure disorder Plan of Treatment: follow-up with primary care provider as needed Follow-up with Neurology for further management of new onset seizures Assessment: see discharge summary
== END 2023-08-07 13:38 | disposition home or self-care (01) | DRG 23 ==
LOC: HO.ED 16:54 → HO.EDOVER 17:22 → HO.ICU 17:24 → HO.S3 08-06 09:05
PROVIDERS: Emergency Medicine; Internal Medicine Pulmonary Disease; Nurse Practitioner Family; Admitting Provider Internal Medicine Critical Care Medicine; Emergency Provider Internal Medicine; PCP Internal Medicine; Visit Provider Nurse Practitioner Acute Care
DX: G40.909 Epilepsy, unspecified, not intractable, without status epilepticus (principal); E78.5 Hyperlipidemia, unspecified; Z79.899 Other long term (current) drug therapy
CPT/HCPCS: 36415; 70450; 71045; 80048; 80053; 80143; 80179; 80202; 80307; 81001; 82040; 82803; 83605; 83735; 84100; 84702; 85007; 85025; 85610; 87040; 94002; 94003; 94799; 99285; J0133; J0330; J0696; J1644; J1790; J1953; J2060; J2250; J2704; J3010; J3370; J3480

== ENCOUNTER → 2023-08-04 16:53 | Outpatient (BNV) | payer BC, SELFPAY | PROVIDERS: Admitting Provider Internal Medicine Critical Care Medicine; Emergency Provider Internal Medicine; PCP Internal Medicine; Visit Provider Internal Medicine Critical Care Medicine | DX: R56.9 Unspecified convulsions (principal) | CPT/HCPCS: 99291 ==

== ENCOUNTER → 2023-08-04 16:53 | Outpatient (BNV) | payer BC, SELFPAY | PROVIDERS: Admitting Provider Internal Medicine Critical Care Medicine; Emergency Provider Internal Medicine; PCP Internal Medicine; Visit Provider Internal Medicine Pulmonary Disease | DX: R56.9 Unspecified convulsions (principal); G93.41 Metabolic encephalopathy | CPT/HCPCS: 99232; 99291 ==

== ENCOUNTER → 2023-08-04 16:53 | Outpatient (BNV) | payer BC, SELFPAY | PROVIDERS: Admitting Provider Internal Medicine Critical Care Medicine; Emergency Provider Internal Medicine; PCP Internal Medicine; Visit Provider Nurse Practitioner Acute Care | DX: R56.9 Unspecified convulsions (principal) | CPT/HCPCS: 99239; 99499 ==